=== PATIENT | male | born 1995 | race Caucasian/White ===

== ENCOUNTER 2021-04-30 12:16 | Emergency (ER) | payer SELFPAY ==
[~2021-04-30] VITALS: Ht 185.4 cm; Wt 77.3 kg
[2021-04-30 12:23] VITALS: BP 138/93; TEMP 98.6
[2021-04-30 13:11] LABS: TRICYCLIC ANTIDEPRESS URINE NEGATIVE
[2021-04-30 13:47] VITALS: PULSE 68
== END 2021-04-30 13:47 | disposition home or self-care (01) ==
LOC: COL.ER 12:16
PROVIDERS: Personal Emergency Response Attendant
DX: F15.10 Other stimulant abuse, uncomplicated (principal); F17.210 Nicotine dependence, cigarettes, uncomplicated